=== PATIENT | female | born 1975 | race African-American/Black ===

== ENCOUNTER 2019-12-21 19:39 | Inpatient (IN) | payer SELFPAY ==
[~2019-12-21] VITALS: Ht 167.6 cm; Wt 64.9 kg
[2019-12-21] MEDS ORDERED: SODIUM CHLORIDE 0.9% 1,000 ML IV ONE (21:15)
[2019-12-21] MEDS ORDERED: ONDANSETRON HCL 4MG/2ML INJ IV STA (21:15)
[2019-12-21 22:00] LABS: MEAN CORPUSCULAR HEMOGLOBIN 14.3 pg (28.0-32.0); MEAN CORPUSCULAR VOLUME 51.6 fL (81.0-99.0); MEAN PLATELET VOLUME 8.6 fl (7.4-10.4); PLATELET 206 x1000/uL (130-400); RED BLOOD CELL COUNT 3.87 mill/uL (4.2-5.4); RED CELL DISTRIBUTION WIDTH 20.4 % (11.6-14.6)
[2019-12-21 22:04] LABS: CHLORIDE 106 mEq/L (98-107)
[2019-12-21 22:05] LABS: HCG SCREEN NEGATIVE
[2019-12-21 22:09] LABS: HEMOGLOBIN. 5.5 g/dL (12.0-16.0)
[2019-12-21] MEDS ORDERED: POTASSIUM CHLORIDE 20MEQ TABLET SR PO ONE (22:15)
[2019-12-21 22:33] LABS: NUCLEATED RED BLOOD CELLS 2 /100 WBC; PLATELET ESTIMATE NORMAL
[2019-12-21] MEDS ORDERED: DIPHENHYDRAMINE 25MG CAPSULE PO ONE (23:00)
[2019-12-21] MEDS ORDERED: ONDANSETRON HCL 4MG/2ML INJ IV PRN (23:15)
[2019-12-21] MEDS ORDERED: HYDROCODONE/ACETAMINOPHEN 5/325MG TABLET PO PRN (23:15)
[2019-12-21] MEDS ORDERED: GUAIFENESIN 200MG/10ML SUGAR FREE UDC PO PRN (23:15)
[2019-12-21] MEDS ORDERED: ACETAMINOPHEN 325MG TABLET PO PRN (23:15)
[2019-12-21] MEDS ORDERED: DOCUSATE SODIUM 100MG CAPSULE PO PRN (23:15)
[2019-12-21 23:23] LABS: TOTAL IRON BINDING CAPACITY 360 ug/dL (250-450)
[2019-12-22] VITALS (12 sets, daily range): BP systolic 90–104; BP diastolic 60–70
[2019-12-22 05:23] LABS: MEAN CORPUSCULAR HEMOGLOBIN 17.3 pg (28.0-32.0); MEAN CORPUSCULAR VOLUME 55.5 fL (81.0-99.0); MEAN PLATELET VOLUME 8.4 fl (7.4-10.4); PLATELET 174 x1000/uL (130-400); RED BLOOD CELL COUNT 3.45 mill/uL (4.2-5.4)
[2019-12-22 05:26] LABS: CHLORIDE 107 mEq/L (98-107)
[2019-12-22 05:36] LABS: HEMATOCRIT. 19.2 % (36.0-48.0)
[2019-12-22] MEDS: DEXT 5%/0.45% NACL KCL 10MEQ/L 1,000 ML IV SCH ×2 (06:40→12:29)
[2019-12-22 08:05] LABS: NUCLEATED RED BLOOD CELLS 1 /100 WBC
[2019-12-22 08:07] LABS: PLATELET ESTIMATE NORMAL
[2019-12-22 08:29] LABS: CLARITY URINE CLOUDY (CLEAR); COLOR URINE ORANGE (YELLOW); KETONES URINE TRACE (NEGATIVE); LEUKOCYTE ESTERASE URINE 2+ (NEGATIVE); NITRITE URINE NEGATIVE (NEGATIVE); OCCULT BLOOD URINE 3+ (NEGATIVE); PH URINE 5.5 (4.5-8.0); PROTEIN URINE 2+ (NEGATIVE); SPECIFIC GRAVITY URINE 1.028 (1.005-1.030)
[2019-12-22] MEDS ORDERED: LEVOFLOXACIN 500MG PREMIX 100 ML IV SCH (12:00)
[2019-12-22] MEDS: FERROUS SULFATE 325MG TABLET PO SCH ×2 (12:36→18:41)
[2019-12-22] MEDS ORDERED: ACETAMINOPHEN 325MG TABLET PO SCH (15:00)
[2019-12-22] MEDS ORDERED: DIPHENHYDRAMINE 50MG/ML VIAL IV SCH (15:00)
[2019-12-22] MEDS ORDERED: DEXT 5%/0.45% NACL KCL 10MEQ/L 1,000 ML IV SCH (21:00)
[2019-12-23] VITALS (7 sets, daily range): BP systolic 95–111; BP diastolic 60–89
[2019-12-23] MEDS: FERROUS SULFATE 325MG TABLET PO SCH (08:48)
[2019-12-23 12:02] LABS: HEMATOCRIT 27.9 % (36.0-48.0); HEMOGLOBIN 8.7 g/dL (12.0-16.0)
== END 2019-12-23 14:25 | disposition home or self-care (01) | DRG 663 ==
LOC: ER 20:12 → 6WST 22:38 → ENRESERV 12-22 07:45 → CANRESERV 12-22 07:45
PROVIDERS: ADMIT Hospitalist; ATTEND Hospitalist
PROC: 30233N1 Transfusion of Nonautologous Red Blood Cells into Peripheral Vein, Percutaneous Approach (ICD-10-PCS; principal; 2019-12-22)
DX: D50.9 Iron deficiency anemia, unspecified (principal); E87.5 Hyperkalemia; F17.200 Nicotine dependence, unspecified, uncomplicated; I10 Essential (primary) hypertension; N39.0 Urinary tract infection, site not specified; N92.0 Excessive and frequent menstruation with regular cycle; Z79.899 Other long term (current) drug therapy
CPT/HCPCS: 36415; 80053; 81003; 82962; 83540; 83550; 84703; 85014; 85018; 85025; 86850; 86900; 86920; 87077; 87186; 93005; 93970; 96361; 96368; 96375; 99285; J1200; J1956; J2405; J7030; J7040; P9016; Q0163

== ENCOUNTER 2020-01-28 02:05 | Inpatient (IN) | payer MEDICAID, OTHER ==
[~2020-01-28] VITALS: Ht 170.2 cm; Wt 83.5 kg
[~2020-01-28 02:05] MED LIST: DOCU250C14 MT; FERR325T6 MT; HYDR-4001 MT; KEPP500 MT
[2020-01-28] MEDS ORDERED: HYDROCODONE/ACETAMINOPHEN 10/325MG TABLET PO ONE (03:00)
[2020-01-28 03:06] LABS: HEMATOCRIT 27.5 % (36.0-48.0); HEMOGLOBIN 8.7 g/dL (12.0-16.0); MEAN CORPUSCULAR HEMOGLOBIN 20.2 pg (28.0-32.0); MEAN CORPUSCULAR VOLUME 63.6 fL (81.0-99.0); PLATELET 257 x1000/uL (130-400); RED BLOOD CELL COUNT 4.32 mill/uL (4.2-5.4); RED CELL DISTRIBUTION WIDTH 34.9 % (11.6-14.6)
[2020-01-28 03:10] LABS: CHLORIDE 100 mEq/L (98-107)
[2020-01-28] MEDS ORDERED: HEPARIN 5000 UNITS/ML VIAL IV PRN ×2 (03:45)
[2020-01-28] MEDS ORDERED: HEPARIN 25,000 UNITS PREMIX 500 ML IV PRN (03:45)
[2020-01-28] MEDS ORDERED: HEPARIN 5000 UNITS/ML VIAL IV SCH (04:00)
[2020-01-28 04:10] LABS: INR 1.1; PARTIAL THROMBOPLASTIN TIME 29.5 sec (23.4-31.0); PROTHROMBIN TIME 11.8 sec (9.6-11.0)
[2020-01-28] MEDS ORDERED: TRAMADOL 50MG TABLET PO PRN (07:30)
[2020-01-28] MEDS ORDERED: NITROGLYCERIN 0.4MG TABLET SL SL PRN (07:30)
[2020-01-28] MEDS ORDERED: KETOROLAC 15MG/ML VIAL IV PRN (07:30)
[2020-01-28 08:45] VITALS: BP 97/67
[2020-01-28] MEDS: ENOXAPARIN 80MG/0.8ML SYR SUBCUT SCH ×3 (09:00→21:48)
[2020-01-28] MEDS: FAMOTIDINE 20MG TABLET PO SCH ×2 (09:06→21:47)
[2020-01-28] MEDS ORDERED: LORAZEPAM 0.5MG TABLET PO PRN (09:30)
[2020-01-28] MEDS ORDERED: CLONIDINE 0.1MG TABLET PO PRN (09:30)
[2020-01-28] MEDS ORDERED: DOCUSATE SODIUM 100MG CAPSULE PO PRN (09:30)
[2020-01-28] MEDS ORDERED: MAGNESIUM/ALUMINUM HYDROXIDE/SIMETHICONE 30ML UDC PO PRN (09:30)
[2020-01-28] MEDS ORDERED: GUAIFENESIN 200MG/10ML SUGAR FREE UDC PO PRN (09:30)
[2020-01-28] MEDS ORDERED: ACETAMINOPHEN 325MG TABLET PO PRN ×2 (09:30)
[2020-01-28] MEDS ORDERED: ONDANSETRON HCL 4MG/2ML INJ IV PRN (09:30)
[2020-01-28] MEDS ORDERED: IRON SUCROSE COMPLEX 100 MG/5 ML ML IV SCH (11:43)
[2020-01-28 12:00] VITALS: BP 107/77
[2020-01-28] MEDS ORDERED: FERROUS SULFATE 325MG TABLET PO SCH (12:15)
[2020-01-28 16:00] VITALS: BP 93/59
[2020-01-28 20:00] VITALS: BP 99/59
[2020-01-28] MEDS ORDERED: ZOLPIDEM TARTRATE 5MG TABLET PO PRN (21:00)
[2020-01-28] MEDS ORDERED: LEVETIRACETAM 500MG TABLET PO SCH (21:00)
[2020-01-29] VITALS: BP 113/72
[2020-01-29 04:00] VITALS: BP 109/73
== END 2020-01-29 08:54 | disposition left against medical advice (07) | DRG 197 ==
LOC: ER 03:01 → 5WST 04:01 → EDBEDREQ 04:05 → ENRESERV 07:38
PROVIDERS: ADMIT Internal Medicine; ATTEND Internal Medicine
DX: I82.622 Acute embolism and thrombosis of deep veins of left upper extremity (principal); R18.8 Other ascites; D49.59 Neoplasm of unspecified behavior of other genitourinary organ; I82.C12 Acute embolism and thrombosis of left internal jugular vein; G40.909 Epilepsy, unspecified, not intractable, without status epilepticus; D64.9 Anemia, unspecified; I10 Essential (primary) hypertension; Z53.29 Procedure and treatment not carried out because of patient's decision for other reasons; Z79.899 Other long term (current) drug therapy
CPT/HCPCS: 36415; 76881; 80053; 85027; 99285; J1644; J1650; J1885